=== PATIENT | female | born 1945 | race Caucasian/White ===

== ENCOUNTER → 2021-05-01 | Day surgery (SDC) | payer MEDICARE ==
[~2021-05-01] VITALS: Ht 177.8 cm; Wt 92.0 kg
[~2021-05-01] MED LIST: ALPR0.5T6 PO; AMLO-187 PO; ARIP2TAB3 PO; BUPR150T21 PO; ESCITALOPRAM OX20 MG PO; IV RINGERS,LACTATED 1000ML 1,000 ML IV SCH; LIDOCAINE 2% PF 5 ML VIAL. ONE; MELO15TA23 PO; PANT40TA77 PO; PROPOFOL 10 MG/ML (20ML) VIAL. IV ONE
[2021-05-01 11:02] VITALS: BP 135/75
[2021-05-01 12:12] VITALS: BP 118/76
--- NOTE | 2021-05-02 17:07 | PATHOLOGY ---
[facility] Accession Number: [id number] . 01 Material submitted: . PART A: small bowel - SMALL BOWEL BIOPSY PART B: stomach - ANTRUM AND BODY BIOPSY PART C: esophagus - DISTAL ESOPHAGUS BIOPSY. Modifiers: distal PART D: stomach - FUNDIC POLYPS . 01 Clinical history: . ABDOMINAL PAIN EGD . 02 Diagnosis: A. Small bowel biopsies: - No diagnostic abnormalities. . B. Gastric biopsies, gastric antrum and body: - Mild antral chronic gastritis. . C. Esophageal biopsies, distal esophagus: - Segments of gastric mucosa showing chronic inflammation. . D. Gastric biopsy, fundic polyp: - Fundic gland polyp. (JPM:ana; 05/02/2021) S 05/02/2021 1120 Local . 02 Comment: Sections of the small bowel biopsy reveal segments of duodenal and small intestine mucosa. Where best oriented, the mucosal villi show no sprue-like changes or significant inflammatory changes. . Sections of the gastric biopsy reveal segments of gastric body and gastric antral mucosa. The gastric body mucosa shows superficial congestion and no significant inflammation. The gastric antral mucosa shows congestion and very mild chronic inflammation. A properly controlled immunoperoxidase stain for Helicobacter is negative for Helicobacter organisms. . Sections of the distal esophageal biopsy reveal several segments of gastric mucosa showing mild to moderate chronic inflammation. There is no squamous esophageal mucosa. There is no evidence of Lobato's change, dysplasia, or malignancy. . Sections of the gastric fundic polyp biopsy reveal a fundic gland polyp. There are no adenomatous changes or evidence of malignancy. (JPM:ana; 05/02/2021) . Special stain performed: Immunoperoxidase stain for Helicobacter on B1 . Electronically signed: . Uzair Harmon MD, Pathologist NPI- [id number] . 01 Gross description: . A. The specimen is submitted in formalin, labeled "Gale, Maribeth, small bowel biopsy". Received are 3 segments of pale avendaño tissue ranging in size from 0.3 to 0.4 cm in maximum dimensions. The specimen is submitted entirely in cassette A1. . B. The specimen is submitted in formalin, labeled "Borberg, Maribeth, antrum and body biopsy". Received are 4 segments of pale avendaño tissue ranging in size from 0.3 to 0.5 cm in maximum dimensions. The specimen is submitted entirely in cassette B1. . C. The specimen is submitted in formalin, labeled "Borbibiana, Maribeth, distal esophagus biopsy". Received are 3 segments of pale avendaño tissue ranging in size from 0.3 to 0.5 cm in maximum dimensions. The specimen is submitted entirely in cassette C1. . D. The specimen is received in formalin, labeled "Gale, Maribeth, fundic polyp". Received is a single segment of pale avendaño tissue measuring 0.3 cm in maximum dimensions. The specimen is submitted entirely in cassette D1. ([facility]; 05/01/2021) NRI/NRI 05/01/[address] [place] [address] . 02 Pathologist provided ICD-10: K29.50, K20.90, K31.7, R10.9 . 02 CPT . 684548, 312907, [id number], [id number], [id number] Specimen Comment: A courtesy copy of this report has been sent to [phone], [phone] Specimen Comment: [id number] Specimen Comment: Report sent to / DR WANG Specimen Comment: A duplicate report has been generated due to demographic updates. Performed at: 01 [facility] [address] [facility] [address], [place] [id number] MD Phil Rizzo MD Phone: [phone] Performed at: 02 [facility] [address] [place], [place] [id number] MD Uzair Harmon MD Phone: [phone]
== END | disposition home or self-care (01) ==
LOC: ENDOS 10:29
PROVIDERS: ATTEND Internal Medicine Gastroenterology
DX: R10.13 Epigastric pain (principal); K21.00 Gastro-esophageal reflux disease with esophagitis, without bleeding; K44.9 Diaphragmatic hernia without obstruction or gangrene; K29.50 Unspecified chronic gastritis without bleeding; K31.7 Polyp of stomach and duodenum; K31.89 Other diseases of stomach and duodenum; I10 Essential (primary) hypertension; M19.90 Unspecified osteoarthritis, unspecified site; F41.9 Anxiety disorder, unspecified; F32.9 Major depressive disorder, single episode, unspecified; Z85.3 Personal history of malignant neoplasm of breast; Z90.710 Acquired absence of both cervix and uterus; Z98.890 Other specified postprocedural states; Z79.899 Other long term (current) drug therapy
CPT/HCPCS: 43239; J2704